=== PATIENT | male | born 1945 | race Caucasian/White ===

== ENCOUNTER → 2020-07-10 | Day surgery (SDC) | payer MEDICARE, OTHER ==
[2020-07-06 14:14] LABS: BASOPHILS % 0.7 % (0.0-1.0); EOSINOPHILS # (AUTO) 0.2 (0.0-0.4); EOSINOPHILS % 3.6 % (0.0-6.0); HEMATOCRIT 46.9 % (38.2-49.6); HEMOGLOBIN 15.2 g/dL (14.0-18.0); LYMPHOCYTES # (AUTO) 2.2 (1.0-3.2); LYMPHOCYTES % 36.6 % (18.0-39.1); MEAN CORPUSCULAR HEMOGLOBIN 30.3 pg (28-32); MEAN CORPUSCULAR HGB CONC 32.4 g/dL (31-35); MEAN CORPUSCULAR VOLUME 93.4 fL (81-99); MONOCYTES # (AUTO) 0.4 (0.2-0.8); NEUTROPHILS % 51.8 % (38.7-80.0); PLATELET COUNT 153 x10e3/uL (140-360); RED BLOOD COUNT 5.02 x10e6/uL (4.3-5.7); RED CELL DISTRIBUTION WIDTH 14.3 % (11.7-14.4)
[~2020-07-10] MED LIST: FENOFIBRATE145 MG PO; FLOMAX0.4 MG PO; FUROSEMIDE40 MG PO; GABAPENTIN100 MG PO; LEVOTHYROXINE75 MCG PO; LIDOCAINE HCL 2% LOCAL INJ 5 ML SDV VIAL INJ ONE; LIOTHYRONINE SO5 MCG PO; LIPITOR10 MG PO; LOSARTAN POTAS100 MG PO; PANTOPRAZOLE SO40 MG PO; PRISTIQ ER50 MG PO; PROPOFOL IV EMULSION 10 MG/ML 20 ML VIAL ONE; SIMETHICONE 40 MG/0.6 ML BTL ONE; VERAPAMIL PO
[2020-07-10 14:40] VITALS: BP 146/81
== END | disposition home or self-care (01) ==
LOC: OR 09:59
PROVIDERS: ATTEND Internal Medicine Gastroenterology
DX: K29.70 Gastritis, unspecified, without bleeding (principal); K57.30 Diverticulosis of large intestine without perforation or abscess without bleeding; K64.1 Second degree hemorrhoids; K21.9 Gastro-esophageal reflux disease without esophagitis; E66.9 Obesity, unspecified; Z68.37 Body mass index [BMI] 37.0-37.9, adult; Z71.3 Dietary counseling and surveillance; Z87.891 Personal history of nicotine dependence; Z01.810 Encounter for preprocedural cardiovascular examination; Z01.812 Encounter for preprocedural laboratory examination; Z20.828 Contact with and (suspected) exposure to other viral communicable diseases
CPT/HCPCS: 36415; 43239; 45378; 85025; 93005; J2001; J2704; U0002

== ENCOUNTER 2020-09-23 14:20 | Emergency (ER) | payer MEDICARE ==
[~2020-09-23] VITALS: Ht 182.9 cm; Wt 122.5 kg
[~2020-09-23 14:20] MED LIST changes: -LIDOCAINE HCL 2% LOCAL INJ 5 ML SDV VIAL INJ ONE; -PROPOFOL IV EMULSION 10 MG/ML 20 ML VIAL ONE; -SIMETHICONE 40 MG/0.6 ML BTL ONE
[2020-09-23] MEDS ORDERED: HYDROCODONE/APAP 5MG-325MG TAB PO ONE (15:45)
[2020-09-23] MEDS ORDERED: LIDOCAINE VISC 2% SOLN 15 ML UDC ONE (15:48)
[2020-09-23] MEDS ORDERED: TYLENOL # 31 EA PO (15:52)
[2020-09-23] MEDS ORDERED: LIDOCAINE VISC 2% SOLN 15 ML UDC PO ONE (16:15)
== END 2020-09-23 16:12 | disposition home or self-care (01) ==
LOC: ER 14:31
DX: I87.8 Other specified disorders of veins (principal); I87.2 Venous insufficiency (chronic) (peripheral); L03.115 Cellulitis of right lower limb; I10 Essential (primary) hypertension; E78.5 Hyperlipidemia, unspecified; E66.9 Obesity, unspecified
CPT/HCPCS: 36415; 99284

== ENCOUNTER 2022-10-16 08:07 | Emergency (ER) | payer MEDICARE ==
[~2022-10-16] VITALS: Ht 182.9 cm; Wt 127.0 kg
[~2022-10-16 08:07] MED LIST changes: +TYLENOL # 31 EA PO
[2022-10-16] MEDS ORDERED: DOXYCYCLINE HY100 MG PO (08:32)
== END 2022-10-16 09:36 | disposition home or self-care (01) ==
LOC: ER 08:16
DX: I87.2 Venous insufficiency (chronic) (peripheral) (principal); I10 Essential (primary) hypertension; E78.5 Hyperlipidemia, unspecified; I73.9 Peripheral vascular disease, unspecified; E66.9 Obesity, unspecified
CPT/HCPCS: 99282